=== PATIENT | female | born 1990 | race Caucasian/White ===

== ENCOUNTER 2018-06-24 12:44 | Emergency (ER) | payer OTHER ==
[~2018-06-24] VITALS: Ht 165.1 cm; Wt 89.4 kg
[2018-06-24] MEDS ORDERED: LORazepam 1MG TABLET ONE (13:13)
[2018-06-24] MEDS ORDERED: LORazepam 1MG TABLET PO ONE (13:30)
--- NOTE | 2018-06-24 14:17 | NUR ---
BREAK NOTE: PT. STATES THAT SHE FEELS BETTER. VSS. PT. IS RESTING WITHOUT CONCERNS.
[2018-06-24 15:08] VITALS: BP 121/78
--- NOTE | 2018-06-24 15:08 | NUR ---
Patient/Caregiver given discharge instructions and they have confirmed that they understand the instructions. Patient ambulatory with steady gait.
== END 2018-06-24 15:09 | disposition home or self-care (01) ==
LOC: ED 14:24
DX: G44.219 Episodic tension-type headache, not intractable (principal); F41.1 Generalized anxiety disorder
CPT/HCPCS: 70450; 99284